=== PATIENT | female | born 1990 | race Caucasian/White ===

== ENCOUNTER 2024-03-15 08:04 | Outpatient (CLI) | payer OTHER, SELFPAY | END 2024-03-15 08:05 | disposition home or self-care (01) | LOC: NFLDREF 03-16 13:59 | PROVIDERS: PCP Registered Nurse; Referring Provider Registered Nurse; Visit Provider Registered Nurse | DX: Z00.00 Encounter for general adult medical examination without abnormal findings (principal); I10 Essential (primary) hypertension; R53.83 Other fatigue; Z13.6 Encounter for screening for cardiovascular disorders | CPT/HCPCS: 80053; 80061; 84443 ==

== ENCOUNTER 2024-05-03 12:48 | Outpatient (CLI) | payer OTHER, SELFPAY ==
--- NOTE | 2024-06-01 08:09 | W.PM.SLEEP ---
Sleep Study Details Details Interpreting Provider: Sebas Date of Sleep Study: 05/03/24 Sleep Study Details: STUDY TYPE:? Home unattended ? BMI:? 32.8 ORDERING PROVIDER:Moncho Mullen INDICATION:? Concerned about sleep apnea ? SLEEP SUMMARY:? 538 minutes monitored RESPIRATORY SUMMARY:? AHI 3.7 Low oxygen 89 Snoring 97.2% PERIODIC LIMB MOVEMENTS OF SLEEP:? Not recorded CARDIAC:? Range 64-100, mean 81.8 beats per minute IMPRESSION:? Primary snoring. The overall AHI is within normal limits RECOMMENDATION: If sleep disorder is strongly suspected an in-lab study is recommended.
== END 2024-05-03 12:49 | disposition home or self-care (01) ==
LOC: SLEEP 12:49
PROVIDERS: PCP Registered Nurse; Visit Provider Otolaryngology
DX: R06.83 Snoring (principal); G47.19 Other hypersomnia
CPT/HCPCS: 95806

== ENCOUNTER 2024-06-28 16:57 | Outpatient (CLI) | payer BC, SELFPAY ==
--- NOTE | 2024-07-06 12:48 | W.PM.SLEEP ---
Sleep Study Details Details Interpreting Provider: Sebas Date of Sleep Study: 06/28/24 Sleep Study Details: STUDY TYPE:? Home unattended ? BMI:? 32.8 ORDERING PROVIDER:? Sebas INDICATION:? Concern about sleep apnea ? SLEEP SUMMARY:? 423 minutes monitored RESPIRATORY SUMMARY:? AHI 10.6 Low oxygen 88 0.2% of study oxygen less than 90% Snoring 100% PERIODIC LIMB MOVEMENTS OF SLEEP:? Not recorded CARDIAC:? Range 61-99, mean 77.2 beats per minute IMPRESSION:? Mild obstructive sleep apnea RECOMMENDATION: Treatment options include CPAP dental appliance and/or airway expansion surgery.
== END 2024-06-28 16:58 | disposition home or self-care (01) ==
LOC: SLEEP 16:58
PROVIDERS: PCP Registered Nurse; Visit Provider Otolaryngology
DX: G47.33 Obstructive sleep apnea (adult) (pediatric) (principal)
CPT/HCPCS: 95806

== ENCOUNTER 2025-02-13 21:30 | Emergency (ER) | payer BC, SELFPAY ==
[2025-02-13 21:38] VITALS: BP 125/81; PULSE 87; RESP 16; TEMP 35.9; O2SAT 96; BMI 31.9
--- NOTE | 2025-02-13 22:15 | ED_ITS ---
HPI - General Adult General Time Seen by Provider: 22:16 Date Seen: 02/13/25 Chief complaint: Ear/Nose/Throat Problem Stated complaint: nosebleed Time Seen by Provider: 02/13/25 22:13 Source: patient, RN notes reviewed and old records reviewed Mode of arrival: ambulatory Limitations: no limitations History of Present Illness HPI narrative: 34-year-old female who comes in today with nose bleed. Patient says she blew her nose and started having bleeding from the right nostril. This blood for about 20 minutes and did not stop so she came to the emergency department. She is not on blood thinners. She uses a CPAP at night and has not been using the humidifier. She denies recent upper respiratory symptoms. Related Data Home Medications ?Medication ?Instructions ?Recorded ?Confirmed methylphenidate HCl 18 mg 18 mg PO QAM 01/21/24 tablet,extended release 24 hr sertraline 100 mg tablet mg PO 01/21/24 12/01/24 fluoxetine 20 mg capsule 20 mg PO DAILY 03/03/2411/16 alprazolam 2 mg tablet 0.25 mg PO QHS PRN 03/19/24 12/01/24 naproxen 500 mg tablet,delayed 500 mg PO Q12H PRN 11/06/1112/01/24 release Previous Rx's ?Medication ?Instructions ?Recorded zolpidem 5 mg tablet (Ambien) 5 mg PO QHS #1 tab 06/01 amlodipine 5 mg tablet 5 mg PO QDAY #90 tabs spironolactone 50 mg tablet 50 mg PO DAILY 90 days #90 tabs 09/01/24 prednisone 20 mg tablet 40 mg (2 x 20 mg) PO QDAY #1 0 tabs 12/01/24 Allergies Allergy/AdvReac Type Severity Reaction Status Date / Time No Known Drug Allergies [facility]ergy Verified 02/13/25 21:37 [facility] Medical History IUD (intrauterine device) in place ?Z97.5 - Presence of (intrauterine) contraceptive device (ICD-10) Polycythemia ?D75.1 - Secondary polycythemia (ICD-10) Essential hypertension ?I10 - Essential (primary) hypertension (ICD-10) PMDD (premenstrual dysphoric disorder) ?F32.81 - Premenstrual dysphoric disorder (ICD-10) ADHD (attention deficit hyperactivity disorder) ?F90.9 - Attention-deficit hyperactivity disorder, unspecified type (ICD-10) PRECIOUS (generalized anxiety disorder) ?F41.1 - Generalized anxiety disorder (ICD-10) Surgical History History of wisdom tooth extraction ?K08.409 - Partial loss of teeth, unspecified cause, unspecified class (ICD- 10) Family History Mother High blood pressure Father High cholesterol High blood pressure Social History Smoking Status: Never smoker Exam Narrative: Exam Narrative: General: well nourished , NAD Head: Atraumatic and normocephalic ENT: External ears and external nose are normal. Nasal clamp in place, small amount of blood at the right near Eyes: Conjunctiva clear, pupils are equal reactive, external ocular motions are intact Neck: Full spontaneous range of motion of the neck Lungs: No respiratory distress Musculoskeletal: No tenderness or deformity Neurologic: No gross focal neurologic deficits Skin: No rashes Psych: Mood and affect are appropriate Const: Vital Signs, click to edit/add: Vital Signs - 24 hr 02/13/25 21:38 Temperature 96.7 F L Pulse Rate [Pulse Oximeter] 87 Respiratory Rate 16 Blood Pressure [Ri ght Upper Arm] 125/81 Pulse Oximetry 96 Oxygen Delivery Me thod Room Air Course Course ED Course: Reviewed most recent urgent care note from a December 01 when patient was seen for sore throat, strep negative and symptomatic treatment recommended. Patient seen examined, presents today with nose bleed. No trauma. This may be related to not using humidified air with her CPAP. On exam vital is stable, no active bleeding, appears anxious. Nasal clamp in place, this was removed and patient blew a small amount of clot out of the right nostril. Packing placed. Reevaluation(s) Reevaluation #1: Epistaxis management, right nostril. Risks and benefits discussed with patient, verbal consent was obtained. Clot was cleared by blowing the nose and a gauze soaked with lidocaine 1% with Afrin was placed in the right nare. This was left in place for about 10 minutes and then removed. The no active bleeding was seen. Examination of the nasal mucosa did not demonstrate any stigmata of recent bleed. No cauterization was done. Discussed risks and benefits of nasal packing, patient declines at this time. We discussed treatment at home including use of Afrin and nasal clamp if bleeding returns, as well as anti biotic ointment or Vaseline to the external nostrils a couple of times a day. Stable for discharge. Vital Signs Vital signs: Initial Vital Signs Temperature 96.7 F L 02/13/25 21:38 Temperature Source Temporal Artery Scan 02/13/25 21:38 Pulse Rate 87 02/13/25 21:38 Respiratory Rate 16 02/13/25 21:38 Blood Pressure 125/81 02/13/25 21:38 Blood Pressure Mean 95 02/13/25 21:38 Blood Pressure Position Sitting 02/13/25 21:38 Pulse Oximetry 96 02/13/25 21:38 Oxygen Delivery Method Room Air 02/13/25 21:38 Vital Signs Temperature 96.7 F L 02/13/25 21:38 Pulse Rate 87 02/13/25 21:38 Respiratory Rate 16 02/13/25 21:38 Blood Pressure 125/81 02/13/25 21:38 Pulse Oximetry 96 02/13/25 21:38 Oxygen Delivery Method Room Air 02/13/25 21:38 Temperature 96.7 F L 02/13/25 21:38 Pulse Rate 87 02/13/25 21:38 Respiratory Rate 16 02/13/25 21:38 Blood Pressure 125/81 02/13/25 21:38 Pulse Oximetry 96 02/13/25 21:38 Oxygen Delivery Method Room Air 02/13/25 21:38 Discharge Plan Discharge Clinical Impression: Epistaxis Patient Disposition: Home, Self-Care Condition: Stable Instructions: Nosebleed (ED) Additional Instructions: Use the humidifier on you CPAP Apply antibiotic ointment or Vaseline to the inside of the nostrils a 2 to 3 times a day for the next week If you have a nose bleed again, bloody nose to clear the clock, put 2 sprays of Afrin in the nostril and apply clamp for 15 minutes. If bleeding does not resolve, return to the emergency department. Activity Level: Activity as Tolerated Discharge Diet: Regular Prescriptions: No Action methylphenidate HCl 18 mg tablet extended release 24hr 18 mg PO QAM sertraline 100 mg tablet PO fluoxetine 20 mg capsule 20 mg PO DAILY naproxen 500 mg tablet,delayed release (DR/EC) 500 mg PO Q12H PRN alprazolam 2 mg tablet 0.25 mg PO QHS PRN zolpidem [Ambien] 5 mg tablet 5 mg PO QHS Qty: 1 0RF spironolactone 50 mg tablet 50 mg PO DAILY 90 Days Qty: 90 3RF amlodipine 5 mg tablet 5 mg PO QDAY Qty: 90 3RF prednisone 20 mg tablet 40 mg PO QDAY Qty: 10 0RF Rx Instructions: Take 2 tabs PO QAM x 5 days Follow Up/Referrals: Provider,Not a Local [Primary Care Provider, Family Practice] Stand Alone Forms: MyHealth Info Instructions
[2025-02-13] MEDS: LIDOCAINE 1%-EPI 1:100,000 20 ML INFILTRATI (22:20)
[2025-02-13] MEDS: OXYMETAZOLINE (AFRIN) SOAK 1 EACH TOPICAL (22:20)
== END 2025-02-13 23:11 | disposition home or self-care (01) ==
PROVIDERS: Emergency Provider Family Medicine
DX: R04.0 Epistaxis (principal)
CPT/HCPCS: 30901; 99282; 99283